=== PATIENT | female | born 1990 | race African-American/Black ===

== ENCOUNTER 2017-11-28 21:58 | Emergency (ER) | payer OTHER ==
[~2017-11-28] VITALS: Ht 170.2 cm; Wt 81.7 kg
[~2017-11-28 21:58] MED LIST: MACROBID 100 M100 M1 PO; MUCINEX TA600 MG/TA1 PO; NOHOMEMEDICATIONS; NORCO 5-325 TA1 EACH PO; PENICILLIN VK250 MG PO; PROMETHAZINE-C120 ML PO; ZOFRAN ODT4 MG PO
[2017-11-29] MEDS ORDERED: FLAGYL500 MG PO (00:23)
[2017-11-29 00:26] VITALS: BP 127/76
[2017-11-30 14:09] LABS: NEISSERIA GONORRHEA-PCR Negative (Negative)
== END 2017-11-29 00:26 | disposition home or self-care (01) ==
LOC: ER 21:58
PROVIDERS: Emergency Medicine
DX: N76.0 Acute vaginitis (principal)

== ENCOUNTER 2018-09-05 20:03 | Emergency (ER) | payer OTHER ==
[~2018-09-05] VITALS: Ht 167.6 cm; Wt 77.1 kg
[~2018-09-05 20:03] MED LIST changes: +FLAGYL500 MG PO
[2018-09-05 20:05] VITALS: BP 148/76
[2018-09-05] MEDS ORDERED: ULTRAM 50MG TAB50 MG PO (21:33)
[2018-09-05] MEDS ORDERED: NAPROSYN500 MG PO (21:33)
== END 2018-09-05 21:40 | disposition home or self-care (01) ==
LOC: ER 20:03
DX: K02.9 Dental caries, unspecified (principal)

== ENCOUNTER 2020-06-05 01:11 | Emergency (ER) | payer OTHER ==
[~2020-06-05] VITALS: Ht 167.6 cm; Wt 79.4 kg
[~2020-06-05 01:11] MED LIST changes: +NAPROSYN500 MG PO; +ULTRAM 50MG TAB50 MG PO
[2020-06-05 02:02] LABS: URINE BILIRUBIN NEGATIVE (Negative); URINE BLOOD NEGATIVE (Negative); URINE CLARITY CLEAR; URINE COLOR YELLOW; URINE GLUCOSE-RANDOM* NEGATIVE (Negative); URINE KETONES 2+ (Negative); URINE PROTEIN (DIPSTICK) NEGATIVE (Negative)
[2020-06-05 02:05] LABS: URINE LEUKOCYTES-REFLEX 1+ (Negative); URINE NITRITE-REFLEX POSITIVE (Negative)
[2020-06-05 02:09] LABS: SQUAMOUS 0-3 Few /LPF (0-3)
[2020-06-05 02:10] LABS: CRYSTALS None Seen /LPF (None Seen); HYALINE CASTS 0-3 Few /LPF (None Seen); MUCUS 0-3 Light strn/LPF (None Seen); URINE RBC 0-2 Rare /HPF (0-2); URINE WBC-REFLEX 6-15 Few /HPF (0-5)
[2020-06-05] MEDS ORDERED: KEFLEX500 M1 PO (02:53)
[2020-06-05 02:58] VITALS: BP 118/76
== END 2020-06-05 02:59 | disposition home or self-care (01) ==
LOC: ER 01:11
PROVIDERS: Emergency Medicine
DX: O23.41 Unspecified infection of urinary tract in pregnancy, first trimester (principal); Z3A.01 Less than 8 weeks gestation of pregnancy

== ENCOUNTER 2021-08-09 01:47 | Emergency (ER) | payer OTHER ==
[~2021-08-09] VITALS: Ht 170.2 cm; Wt 90.7 kg
[~2021-08-09 01:47] MED LIST changes: +KEFLEX500 M1 PO
[2021-08-09 03:50] LABS: ABSOLUTE NEUTROPHILS 9.7 thou/uL (1.4-8.2); BASOPHILS 0.2 % (0.0-2.0); EOSINOPHILS 0.2 % (0.0-3.0); HEMATOCRIT 25.9 % (37.0-47.0); HEMOGLOBIN 8.9 gm/dL (12.0-15.0); LYMPHOCYTES 8.5 % (24.0-44.0); MCH 29.2 pg (26.0-34.0); MCHC 34.5 g/dL (28.0-37.0); MCV 84.7 fL (80.0-100.0); MONOCYTES 5.1 % (1.0-8.0); PLATELET COUNT 355 thou/uL (150-400); RBC 3.06 mil/uL (4.20-5.00); RDW 12.7 % (10.5-14.5); WBC 11.3 thou/uL (4.0-11.0)
[2021-08-09 03:53] LABS: CALCIUM 8.9 mg/dL (8.5-10.1); CREATININE 0.9 mg/dL (0.6-1.0); POTASSIUM 3.5 mmol/L (3.5-5.1)
[2021-08-09 04:16] LABS: URINE BILIRUBIN NEGATIVE (Negative); URINE BLOOD NEGATIVE (Negative); URINE CLARITY CLEAR; URINE COLOR YELLOW; URINE GLUCOSE-RANDOM* NEGATIVE (Negative); URINE KETONES 1+ (Negative); URINE LEUKOCYTES-REFLEX NEGATIVE (Negative); URINE NITRITE-REFLEX NEGATIVE (Negative); URINE PROTEIN (DIPSTICK) NEGATIVE (Negative); URINE SPECIFIC GRAVITY <= 1.005 (1.005-1.035); URINE UROBILINOGEN 0.2 E.U./dl (0.2-1.0)
[2021-08-09 05:52] VITALS: BP 132/79
--- NOTE | 2021-08-09 10:26 | EKG ---
[place] [address] [address] [facility] [address] [place] [address] ELECTROCARDIOGRAM REPORT Name: BRISA MONREAL Room #: REGINA Smith#: [id number] Admission: 08/09/21 Attend Phys: Discharge: Date of : [birth year] Report #: [id number] [facility] ED Test Date: 2021-08-09 Test Time: 03:00:49 Pat Name: BRISA MONREAL Department: Room: Gender: F Director Emergency Department: DONOVAN : 1990 Requested By: Uriah Kruger Order Number: [id number] MD: Ge Cordon Measurements Intervals [place] Rate: 114 P: 65 KS: 173 QRS: 53 QRSD: 84 T: 25 QT: 320 QTc: 441 Interpretive Statements Sinus tachycardia Otherwise normal No previous ECG available for comparison Electronically Signed On 08-09-2021 10:25:57 [employer] by Ge Cordon [email or web address] <ELECTRONICALLY SIGNED> By: Ge Cordon MD, [facility] 08/09/21 1025 0300 0300 Ge Cordon MD, FACC /EPI
== END 2021-08-09 06:30 | disposition home or self-care (01) ==
LOC: ER 01:47
PROVIDERS: Student in an Organized Health Care Education/Training Program
DX: R06.02 Shortness of breath (principal); Z20.822 Contact with and (suspected) exposure to COVID-19; Z79.899 Other long term (current) drug therapy